=== PATIENT | female | born 1975 | race Caucasian/White ===

== ENCOUNTER 2025-03-29 17:45 | Emergency (ER) | payer OTHER, SELFPAY ==
--- NOTE | 2025-03-29 18:25 | ED.GENADULT ---
HPI - General Adult General Chief complaint: Headache Stated complaint: Migraine-vomiting, mass in brain Time Seen by Provider: 03/29/25 18:25 Focused HPI: Kiah Hale is a 49 y/o female who presents who presents that she has had a severe migraine for 2 weeks and getting worse and she followed up with her PCP and had labs / ct done and then she had CTA of her head and states that there was a mass found that was 2x2 , she is scheduled for an MRI here on Tuesday and has appt with neurosurgery on 04/05. her PCP started her on medications for her migraine last week Toprimate and Sumatriptan but she cannot keep anything down. She states she hasn't been able to keep anything down for a week and she is here today with worsening pain and she feels that she gets a burning pain in the back of her head and then she vomits. GENERAL: appears uncomfortable. HEAD: Normocephalic, atraumatic. CHEST: Clear to auscultation. No respiratory distress. HEART: Regular rate and rhythm. NEURO: Alert and oriented x3. Patient screened in triage and initial orders placed. Additional care and disposition to be based upon diagnostic testing and treatment. Related Data Allergies Allergy/AdvReac Type Severity Reaction Status Date / Time No Known Allergies Allergy Verified 03/29/25 17:46 Discharge Plan Discharge Clinical Impression: Headache Qualifiers: Headache type: unspecified Headache chronicity pattern: acute headache Intractability: not intractable Qualified Code(s): R51.9 - Headache, unspecified Patient Disposition: Elopement After Seen by Prov Patient Language: Occitan Follow-up/Referrals: Macey,Campbell Kelly MD [Primary Care Provider] - Time of Disposition: 18:45
--- NOTE | 2025-03-29 18:52 | PC.NURSE ---
Patient and walked out after cussed out staff for wait time. Patient walked out holding onto husbands arm, gait appeared steady
--- OUTSIDE RECORDS SUMMARY | 2025-03-29 20:18 | XMS_ITS | Encounter Summary ---
Author Organization [facility] Address [address] [place] [id number] Care Team Providers Care Antique Collector Name Role Phone None, Provider Primary Care Provider Unavaila ble Reason for Referral * Imaging (Emergency) - New Request Specialty Diagnoses / Procedures Referred By Kenji munoz Referred To Contact RADIOLOGY Procedures CT HEAD WO CON Cr Chin NP [address] [place] [address] Phone: tel: fax: Referral ID Status Reason Start Date Expiration Date V isits Requested Visits Authorized [id number] New Request 03/29/2025 03/29/2026 1 1 Reason for Visit * Reason Comments Headache Encounter Details Date Type Department Care Team (Late st Contact Info) Description 03/29/2025 7:17 PM CDT Emergency [facility] [place] [address] Cr Chin NP [address] [place] [address] Headache Social History Tobacco Use Types Packs/Day Years Used Date Smoking Tobacco: Every Day Cigarettes Tobacco Cessation:Ready to Q uit: Not Asked; Counseling Given: Not Answered Alcohol Use Standard Drinks/Week Comments Not Currently 0 (1 standard drink = 0.6 oz pur e alcohol) Comments No Sex and Gender Information Value Date Recorded Sex Assigned at Female 03/29/2025 7:39 PM CDT Legal Sex Female 7:17 PM CDT Gender Identity Not on file Sexual Orientation Not on file documented as of this encounter Last Filed Vital Signs Vital Sign Reading Time Taken Comments Blood Pressure 136/99 03/29/2025 7:25 PM CDT Pulse 73 03/29/2025 7:25 PM CDT Temperature 36.8 C (98.2 F) 03/29/2025 7:25 PM CDT Respiratory Rate 18 03/29/2025 7:25 PM CDT Oxygen Saturation 99% 03/29/2025 7:25 PM CDT Inhaled Oxygen Concentration - - Weight 72.9 kg (160 lb 11.5 oz) 03/29/2025 7:25 PM CDT Height 170.2 cm (5' 7 ) 03/29/2025 7:25 PM CDT Body Mass Index 25.17 03/29/2025 7:25 PM CDT documented in this encounter Functional Status * Calculated C-SSRS Risk Score (Lifetime/Recent) Answer Date of Assessment Author Status No Risk Indicated 03/29/2025 7:32 PM CDT Me kanu Lucas RN Active * [place] Suicide Severity Rating Scale (Screener/Recent Self-Report) Question Answer Date of Assessment Author Status 1. Wish to be (Past 1 Month) No 03/29/2025 7:32 PM CDT Emily Lucas RN A ctive 2. Non-Specific Active Suicidal Thoughts (Past 1 Month) No 03/29/2025 7:32 PM CDT Emily Lucas RN A ctive 6. Suicidal Behavior (Lifetime) No 03/29/2025 7:32 PM CDT Emily Lucas RN A ctive documented as of this encounter ED Notes * Emily Lucas RN - 03/29/2025 7:26 PM CDT Pt ambulatory to triage with CC of migraine X 2 days. Pt states a mass last week, has scheduled MRISunday, and neurosurgery next Tuesday. Pt is taking the two meds given for GLEASON given to her by PCP before scan, but makes her violently ill with puking. Pt is experiencing blurred vision. documented in this encounter Plan of Treatment Scheduled Orders Name Type Priority Associated Diagnoses Orde r Schedule CBC W/DIFF AUTOMATED Lab STAT Once for 1 Occurrences starting 03/29/2025 until 03/29/2025 COMPREHENSIVE METABOLIC PANEL Lab STAT Once for 1 Occur rences starting 03/29/2025 until 03/29/2025 HCG QUANTITATIVE SERUM Lab Routine ST AT for 1 Occurrences starting 03/29/2025 until 03/29/2025 MAGNESIUM Lab STAT Once for 1 Occ urrences starting 03/29/2025 until 03/29/2025 documented as of this encounter Procedures Procedure Name Priority Date/Time Associated Diagnosis Comments CT HEAD WO CON STAT 03/29/2025 7:43 PM CDT documented in this encounter Results * CT HEAD WO CON (03/29/2025 7:43 PM CDT) Anatomical Region Laterality Modality Head Computed Tomogra phy 03/29/2025 7:55 PM CDT Impressions 03/29/2025 8:04 PM CDT IMPRESSION: 1. 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 Recommend MRI correlation with and without contrast, unless already performed recently elsewhere. 2. 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 Recommend neurosurgical consultation. Please note that CT has limited sensitivity for the detection of acute ischemia. Referred By: Interpreted By: Steve Broussard MD, 03/29/2025 7:55 PM Narrative 03/29/2025 8:04 PM CDT [facility] [address] [place], [place] [address] EXAMINATION: CT of the head CLINICAL HISTORY: Headache, reported brain mass COMPARISON: None available TECHNIQUE: CT examination of the head without contrast was performed with axial images obtained. A radiation dose lowering technique was used for this procedure, which may include, but is not limited to, dose reduction technique, automated exposure control, the use of iterative reconstruction, ALARA (As Low As Reasonably Achievable) techniques, and Image Gently techniques. FINDINGS: There is a cystic mass in the posterior fossa, appearing intra-axial within the cerebellum centered just left of midline. Question possible eccentric solid component about its right lateral aspect. This lesion measures 3.0 x 3.2 cm transverse dimension and 4.4 cm craniocaudal dimension, extending from the level of the traci/midbrain junction, inferiorly to the level of the foramen magnum. There is an adjacent parenchymal edema in the cerebellum. There is significant mass effect in the cerebellum with loss of cerebellar sulci, with the cerebellar tonsils extending a few millimeters below the level of the foramen magnum indicating mild tonsillar herniation. No evidence of transtentorial herniation. There is mass effect on the adjacent medulla and traci with slight contour deformation. Mass effect causes effacement of the fourth ventricle, along with mild to moderate dilatation of the third and lateral ventricles concerning for obstructive hydrocephalus. There is mild confluent periventricular parenchymal low attenuation concerning for transependymal CSF migration in the setting of hydrocephalus. In addition there is probably some supratentorial mass effect from the suspected hydrocephalus, as there is generalized effacement of cerebral sulci. The cerebellar findings are highly suspicious for neoplasm. There is no definite CT evidence to suggest acute territorial infarction. The calvarium is unremarkable without evidence of acute fracture. The visualized mastoid air cells, paranasal sinuses, and orbits are grossly unremarkable. Procedure Note Steve Broussard MD - 03/29/[address] [address] EXAMINATION: CT of the head CLINICAL HISTORY: Headache, reported brain mass COMPARISON: None available TECHNIQUE: CT examination of the head without contrast was performed withaxial images obtained. A radiation dose lowering technique was used forthis procedure, which may include, but is not limited to, dose reductiontechnique, automated exposure control, the use of iterativereconstruction, ALARA (As Low As Reasonably Achievable) techniques, andImage Gently techniques. FINDINGS: There is a cystic mass in the posterior fossa, appearing intra-axialwithin the cerebellum centered just left of midline. Question possibleeccentric solid component about its right lateral aspect. This lesionmeasures 3.0 x 3.2 cm transverse dimension and 4.4 cm craniocaudaldimension, extending from the level of the traci/midbrain junction,inferiorly to the level of the foramen magnum. There is an adjacentparenchymal edema in the cerebellum. There is significant mass effect inthe cerebellum with loss of cerebellar sulci, with the cerebellar tonsilsextending a few millimeters below the level of the foramen magnumindicating mild tonsillar herniation. No evidence of transtentorialherniation. There is mass effect on the adjacent medulla and traci withslight contour deformation. Mass effect causes effacement of the fourth ventricle, along with mild tomoderate dilatation of the third and lateral ventricles concerning forobstructive hydrocephalus. There is mild confluent periventricularparenchymal low attenuation concerning for transependymal CSF migration inthe setting of hydrocephalus. In addition there is probably somesupratentorial mass effect from the suspected hydrocephalus, as there isgeneralized effacement of cerebral sulci. The cerebellar findings are highly suspicious for neoplasm. There is no definite CT evidence to suggest acute territorial infarction.The calvarium is unremarkable without evidence of acute fracture. Thevisualized mastoid air cells, paranasal sinuses, and orbits are grosslyunremarkable. IMPRESSION: 1. There is a predominantly cystic cerebellar mass measuring 4.4 x 3.2 x3.0 cm, concerning for neoplasm. Recommend MRI correlation with andwithout contrast, unless already performed recently elsewhere. 2. Significant mass effect with mild cerebellar tonsillar herniation andlikely obstructive hydrocephalus, with mild to moderate enlargement of thelateral ventricles and third ventricle as above. Recommend neurosurgicalconsultation. Please note that CT has limited sensitivity for the detection of acuteischemia. Referred By: Interpreted By: Steve Broussard MD, 03/29/2025 7:[address] Final Result documented in this encounter Visit Diagnoses Not on filedocumented in this encounter Care Teams Antique Collector Relationship Specialty Start Date End Date None, Provider, PCP - General UNKNOWN PHYSICIAN SPECIALTY 03/29/25 documented as of this encounter
--- OUTSIDE RECORDS SUMMARY | 2025-03-29 20:18 | XMS_ITS | Encounter Summary ---
Author Organization [facility] Address [address] [place] [id number] Care Team Providers Care Reporting Consultant Name Role Phone None, Provider Primary Care Provider Unavaila ble Encounter Details Date Type Department Care Team (Latest Contact Info) Description 03/29/2025 Travel Social History Tobacco Use Types Packs/Day Years Used Date Smoking Tobacco: Every Day Cigarettes Alcohol Use Standard Drinks/Week Comments Not Currently 0 (1 standard drink = 0.6 oz pur e alcohol) Comments No Sex and Gender Information Value Date Recorded Sex Assigned at Female 03/29/2025 7:39 PM CDT Legal Sex Female 7:17 PM CDT Gender Identity Not on file Sexual Orientation Not on file documented as of this encounter Functional Status * Calculated C-SSRS Risk Score (Lifetime/Recent) Answer Date of Assessment Author Status No Risk Indicated 03/29/2025 7:32 PM CDT Me kanu Lucas RN Active * [place] Suicide Severity Rating Scale (Screener/Recent Self-Report) Question Answer Date of Assessment Author Status 1. Wish to be (Past 1 Month) No 03/29/2025 7:32 PM MALCOLMT Emily Lucas RN A ctive 2. Non-Specific Active Suicidal Thoughts (Past 1 Month) No 03/29/2025 7:32 PM Emily Pittman RN A ctive 6. Suicidal Behavior (Lifetime) No 03/29/2025 7:32 PM MALCOLMT Emily Lucas RN A ctive documented as of this encounter Plan of Treatment Not on file documented as of this encounter Visit Diagnoses Not on filedocumented in this encounter Care Teams Reporting Consultant Relationship Specialty Start Date End Date None, Provider, PCP - General UNKNOWN PHYSICIAN SPECIALTY 03/29/25 documented as of this encounter
--- OUTSIDE RECORDS SUMMARY | 2025-03-29 20:18 | XMS_ITS | Clinical Summary ---
Author Organization [facility] Address [address] [place] [id number] Care Team Providers Care Hospital Admissions Officer Name Role Phone None, Provider MD Primary Care Provider Unavaila ble Allergies No known active allergies Encounters Date Type Department Care Team Description 03/29/2025 7:17 PM CDT Emergency [facility] [place] [address] Cr Chin NP Headache 03/29/2025 Travel from Last 3 Months Social History Tobacco Use Types Packs/Day Years [...] on file Sexual Orientation Not on file Last Filed Vital Signs Vital Sign Reading [...] Mass Index 25.17 03/29/2025 7:25 PM CDT Plan of Treatment Health Maintenance Due Date Last Done Comments Cervical Cancer Screening Pa p Smear (Age 30 to 64) Every 3 Years 1977 Colorectal Cancer Screening Colonoscopy (10 Years) 1977 Annual Physical 1980 Hepatitis C 1995 DTaP, Tdap and Td Vaccines ( 1 - Tdap) 1996 Hepatitis B Vaccines (1 of 3 - 19+ 3-dose series) 1996 Cervical Cancer Screening Pa p with HPV Testing (Age 30 to 64) Every 5 Years 2007 Cervical Cancer Screening with HPV 2007 Mammogram Screening 2017 COVID-19 Vaccine (2023-2 5 season) 2024 Meningococcal B Vaccine Aged Out No l onger eligible based on patient's age to complete this topic Meningococcal Vaccine Aged Out No jennifer naif eligible based on patient's age to complete this topic Pneumococcal Vaccine: Pediat rics (0 to 5 Years) and At-Risk Patients (6 to 49 Years) Aged Out No longer eligible b ased on patient's age to complete this topic RSV Immunizations Under 20 Months Aged Out No longer eligible based on patient's age to complete this topic Procedures Procedure Name Priority Date/Time Associated Diagnosis Comments CT HEAD WO CON STAT 03/29/2025 7:43 PM CDT from Last 3 Months Results * CT HEAD WO CON (03/29/2025 [...] 7:55 PM Narrative 03/29/2025 8:04 PM CDT [address] [address] EXAMINATION: CT of the head CLINICAL HISTORY: [...] Procedure Note Steve Broussard MD - 03/29/2025 [address] [place], [place] [address] EXAMINATION: CT of the head CLINICAL HISTORY: [...] By: Steve Broussard MD, 03/29/2025 7:55 PM us Cr Chin NP CT Final Result from Last 3 Months Care Teams Hospital Admissions Officer Relationship Specialty Start Date End Date None, Provider, PCP - General UNKNOWN PHYSICIAN SPECIALTY 03/29/25
== END 2025-03-29 20:46 | disposition left against medical advice (07) ==
LOC: ANHED 20:15
PROVIDERS: Emergency Provider Nurse Practitioner Family; PCP Internal Medicine Geriatric Medicine
DX: R51.9 Headache, unspecified (principal)
CPT/HCPCS: 99281